=== PATIENT | female | born 1950 | race African-American/Black ===

== ENCOUNTER 2024-07-29 17:42 | Observation (INO) | payer MEDICARE ==
[~2024-07-29] VITALS: Ht 160 cm; Wt 85.7 kg
[2024-07-29] MEDS: PANTOPRAZOLE SODIUM 40 MG in D5W 50 ML IV SCH (18:10)
[2024-07-29] MEDS: PANTOPRAZOLE 40MG VIAL IV ONE (18:10)
[2024-07-29 18:50] LABS: BASO # 0.1 10^3/uL (0.0-0.2); EOS # 0.1 10^3/uL (0.0-0.5); EOS % 1.3 % (0.0-3.0); HEMATOCRIT 22.6 % (36.0-47.0); LYMPH # 1.7 10^3/uL (1.5-5.0); LYMPH % 17.7 % (24.0-44.0); MEAN CORPUSCULAR HEMOGLOBIN 20.7 pg (27.0-33.0); MEAN CORPUSCULAR HGB CONC 28.3 g/dl (32.0-36.5); MEAN CORPUSCULAR VOLUME 73.1 fl (80.0-96.0); MONO % 11.1 % (2.0-8.0); NEUTROPHILS # 6.4 10^3/uL (1.5-8.5); NEUTROPHILS % 68.2 % (36.0-66.0); PLATELET COUNT, AUTOMATED 276 10^3/uL (150-450); RED BLOOD COUNT 3.09 10^6/uL (4.00-5.40); WHITE BLOOD COUNT 9.4 10^3/uL (4.0-10.0)
[2024-07-29 18:55] LABS: HEMOGLOBIN 6.4 g/dl (12.0-15.5)
[2024-07-29 19:20] LABS: ALBUMIN 3.9 G/DL (3.2-5.2); ALKALINE PHOSPHATASE 84 U/L (35-104); ALT/SGPT 17 U/L (7.0-40); AST/SGOT 18 U/L (<34); BILIRUBIN,DIRECT < 0.1 MG/DL (<0.4); BILIRUBIN,TOTAL 0.3 MG/DL (0.3-1.2); BLOOD UREA NITROGEN 25 MG/DL (9-23); CALCIUM LEVEL 9.7 MG/DL (8.3-10.6); CARBON DIOXIDE LEVEL 26 MMOL/L (20-31); CHLORIDE LEVEL 102 MMOL/L (98-107); CREATININE FOR GFR 1.03 MG/DL (0.55-1.30); GLOMERULAR FILTRATION RATE > 60.0 (>39); GLUCOSE, FASTING 143 MG/DL (74-106); POTASSIUM SERUM 4.1 MMOL/L (3.5-5.1); SODIUM LEVEL 138 MMOL/L (136-145); TOTAL PROTEIN 7.3 G/DL (5.7-8.2)
[2024-07-29 19:23] LABS: PERCENT SATURATION 99.2 % (13.2-45.0)
[2024-07-29 19:24] LABS: FERRITIN 6.6 NG/ML (7.3-270.7); FOLATE 12.08 NG/ML (>5.4)
[2024-07-29] MEDS: OMEPRAZOLE 20MG CAP PO ONE (19:52)
[2024-07-29] MEDS ORDERED: VITA-325 PO (20:57)
[2024-07-29] MEDS ORDERED: ASPI81TA26 PO (20:57)
[2024-07-29] MEDS ORDERED: SPIR1TAB34 PO (20:57)
[2024-07-29] MEDS ORDERED: TRUL10IN INJ (20:57)
[2024-07-29] MEDS ORDERED: METO1TAB33 PO (20:57)
[2024-07-29] MEDS ORDERED: PRAV40TA2 PO (20:57)
[2024-07-29] MEDS ORDERED: DORZ2SOL4 OS (20:57)
[2024-07-29] MEDS ORDERED: VITA1CAP21 PO (20:57)
[2024-07-29] MEDS ORDERED: MAGN200T PO (21:00)
[2024-07-29] MEDS: INSULIN LISPRO (NovoLOG) PER UNIT SC SCH (21:00)
[2024-07-29] MEDS ORDERED: D3 S20002 PO (21:00)
[2024-07-29] MEDS ORDERED: RA M500C PO (21:02)
[2024-07-29] MEDS ORDERED: HOME MED LIST COMPLETE! XX SCH (21:05)
[2024-07-29] MEDS ORDERED: DEXTROSE 50% 50ML SYRINGE IV PRN (21:20)
[2024-07-29] MEDS ORDERED: GLUCOSE 4 GM CHEW PO PRN (21:20)
[2024-07-29] MEDS ORDERED: ACETAMINOPHEN 325 MG TAB PO PRN (21:20)
[2024-07-29] MEDS ORDERED: MOM 30ML SUSPENSION UDC PO PRN (21:20)
[2024-07-29] MEDS ORDERED: GLUCAGON INJ 1MG VIAL SC PRN (21:20)
[2024-07-29 21:42] VITALS: BP 115/65; TEMP 98.7; O2SAT 99
[2024-07-29 22:04] VITALS: BP 115/62; TEMP 98.5; O2SAT 100
[2024-07-29 22:07] LABS: PERCENT SATURATION 91.5 % (13.2-45.0)
[2024-07-29 22:09] LABS: FERRITIN 6.5 NG/ML (7.3-270.7)
[2024-07-29 23:16] VITALS: BP 126/59; O2SAT 99
[2024-07-29 23:43] VITALS: BP 115/60; TEMP 98.1; O2SAT 99
[2024-07-30 01:35] VITALS: BP 143/70; TEMP 97.9; O2SAT 99
[2024-07-30] MEDS: PRAVASTATIN 20 MG TAB PO SCH (02:03)
[2024-07-30 02:45] VITALS: BP 121/68; TEMP 97; O2SAT 99
[2024-07-30 02:54] VITALS: BP 125/67; TEMP 97.2; O2SAT 98
[2024-07-30 04:04] VITALS: BP 127/69; TEMP 96.8; O2SAT 97
[2024-07-30 06:18] LABS: INR 1.01; PROTHROMBIN TIME 13.6 SECONDS (12.5-14.5)
[2024-07-30 06:19] LABS: HEMATOCRIT 28.8 % (36.0-47.0); MEAN CORPUSCULAR HEMOGLOBIN 23.2 pg (27.0-33.0); MEAN CORPUSCULAR HGB CONC 30.9 g/dl (32.0-36.5); MEAN CORPUSCULAR VOLUME 75.2 fl (80.0-96.0); PLATELET COUNT, AUTOMATED 230 10^3/uL (150-450); RED BLOOD COUNT 3.83 10^6/uL (4.00-5.40); WHITE BLOOD COUNT 9.4 10^3/uL (4.0-10.0)
[2024-07-30 06:24] LABS: HEMOGLOBIN 8.9 g/dl (12.0-15.5)
[2024-07-30 06:32] LABS: BLOOD UREA NITROGEN 20 MG/DL (9-23); CALCIUM LEVEL 9.4 MG/DL (8.3-10.6); CARBON DIOXIDE LEVEL 26 MMOL/L (20-31); CHLORIDE LEVEL 104 MMOL/L (98-107); CREATININE FOR GFR 0.95 MG/DL (0.55-1.30); GLOMERULAR FILTRATION RATE > 60.0 (>39); GLUCOSE, FASTING 111 MG/DL (74-106); POTASSIUM SERUM 3.9 MMOL/L (3.5-5.1); SODIUM LEVEL 139 MMOL/L (136-145)
[2024-07-30] MEDS: INSULIN LISPRO (NovoLOG) PER UNIT SC SCH (07:30)
[2024-07-30] MEDS ORDERED: OMEP40CA4 PO (07:54)
[2024-07-30] MEDS ORDERED: SUCR1TA PO (07:54)
[2024-07-30] MEDS: PANTOPRAZOLE 40MG VIAL IV SCH (08:20)
[2024-07-30 08:21] VITALS: BP 124/68
[2024-07-30] MEDS: METOPROLOL SUCC (TopROL XL) 100MG *XL* TAB PO SCH (08:21)
[2024-07-30] MEDS: VITAMIN D 1,000 INTERNATIONAL UNITS TABLET PO SCH (08:21)
[2024-07-30] MEDS: DORZOLAMIDE 2% OPHTH SOLN 10 ML BTL OS SCH (08:21)
== END 2024-07-30 09:42 | disposition home or self-care (01) ==
LOC: M ED 17:42 → M ED INP 17:43 → M MSPAV 07-30 01:28
PROVIDERS: ADMIT Internal Medicine; ATTEND Internal Medicine
DX: D50.9 Iron deficiency anemia, unspecified (principal); K92.2 Gastrointestinal hemorrhage, unspecified; K21.9 Gastro-esophageal reflux disease without esophagitis; K92.1 Melena; E78.5 Hyperlipidemia, unspecified; I10 Essential (primary) hypertension; E11.9 Type 2 diabetes mellitus without complications; R53.83 Other fatigue; R06.00 Dyspnea, unspecified; Z88.8 Allergy status to other drugs, medicaments and biological substances; Z79.899 Other long term (current) drug therapy
CPT/HCPCS: 36415; 36430; 71045; 80048; 80076; 82607; 82728; 82746; 83550; 85025; 85027; 85046; 85610; 86850; 86900; 86901; 86920; 93005; 93041; 94760; 99285; G0378; P9016